=== PATIENT | male | born 1945 | race Caucasian/White ===

== ENCOUNTER 2019-08-13 11:42 | Emergency (ER) | payer OTHER, MEDICARE, SELFPAY ==
--- NOTE | ~2019-08-13 | XR_ITS ---
[XR ribs LT 2V w CXR 2V ] INDICATION: Left rib pain. Cough. TECHNIQUE: Frontal projection of the upper left ribs, frontal projection of the lower left ribs, obli que projection of all the left ribs, frontal inspiratory chest x-ray for interpretation. FINDINGS: There are no displaced rib fractures identified. There are no soft tissue abnormality see n. There is a right lower lobe mass measuring 3.4 cm. IMPRESSION: 1: 3.4 cm right lower lobe mass. Follow-up CT chest recommended. 2: No acute displaced rib fractures. Reviewed, dictated and finalized at location [facility]. [employer]
--- NOTE | 2019-08-13 12:42 | ED.BACK ---
HPI - Back Pain/Injury General Chief Complaint: Back Pain/Injury Stated Complaint: cough/left sided back pain Time Seen by Provider: 08/13/19 12:38 Source: patient Mode of arrival: ambulatory Limitations: no limitations History of Present Illness HPI Narrative: A 74 y/o male pt presents to the ED, with c/o pain to his lt posterior rib cage. Pt states he was recently Dx with a sinus infection by his PCP x 1 month ago, that he was prescribed Zithromax for and his Sx began to subside, however, his Sx returned last Sunday (5 days ago). He states that he returned to his PCP and was prescribed Augmentin and he notes his Sx are improving. Pt notes coughing hard last night and states he felt a pop and notes pain to his lt posterior rib cage and SOB immediately following. He states his pain is aggravated when taking a deep breath, and notes his pain is alleviated when coughing by applying direct pressure to the affected area. He notes taking cough medicine, and Oxycodone at 7AM and again at 9AM, that he had left over from a previous operation, with little relief. He adds that he took half of a Hydrocodone x 7.5mg at 11AM and he felt some relief. Pt states he has a CXR on Sunday (2 days ago) and results showed a 3mm spot, but he is scheduled for a follow up CT scan to determine what it is. He denies any PMHx of COPD. Pt notes an allergy to Mirtazapine. MD elicited complaint: back pain Pertinent past history: other (cough) Onset (ago): hour(s) (last night) Timing: constant Location: left upper back (posterior rib cage) Exacerbating factors: movement, deep breaths and coughing/sneezing Relieving factors: other (applying direct pressure to the area when coughing) Context: other (coughing) Associated symptoms: other (SOB) Treatments prior to arrival: prescription analgesics (Hydrocodone, Oxycodone) and other (OTC cough medicine) Related Data Home Medications Medication Instructions Recorded Confirmed albuterol sulfate 0.63 mg INHALATION Q6H 08/13/19 08/13/19 albuterol sulfate 1 inh INHALATION QID 08/13/19 08/13/19 alprazolam 0.5 mg PO BID PRN 08/13/19 08/13/19 aspirin [Adult Low Dose Aspirin] 08/13/19 azithromycin 08/13/19 baclofen 20 mg 08/13/19 benzonatate 200 mg 08/13/19 benzoyl peroxide TOPICAL 08/13/19 buspirone mg TID 08/13/19 carbidopa-levodopa tablet 08/13/19 cholecalciferol (vitamin D3) unit PO 08/13/19 cyclobenzaprine mg 08/13/19 diclofenac sodium TOPICAL 08/13/19 docusate sodium PO 08/13/19 dorzolamide (PF) 08/13/19 finasteride 08/13/19 fluticasone propionate INTRANASAL 08/13/19 furosemide 08/13/19 gabapentin 08/13/19 hydrocodone-acetaminophen 1 tablet PO Q12H PRN 08/13/19 08/13/19 latanoprost 08/13/19 leflunomide mg 08/13/19 lisinopril 08/13/19 loratadine mg 08/13/19 metoprolol succinate 50 mg PO DAILY 08/13/19 08/13/19 omeprazole 08/13/19 ondansetron HCl 08/13/19 polyethylene glycol 3350 17 g PO DAILY 08/13/19 08/13/19 polyvinyl alcohol [Artificial 08/13/19 Tears (polyvin alc)] potassium citrate PO 08/13/19 simvastatin mg 08/13/19 tamsulosin mg PO 08/13/19 Allergies Allergy/AdvReac Type Severity Reaction Status Date / Time No Known Allergies Allergy Unknown Verified 08/13/19 13:03 Review of Systems Review of Systems: All systems reviewed & are unremarkable except as noted in HPI and below Respiratory: Respiratory: Reports cough, Reports pain on inspiration, Reports pain with cough and Reports dyspnea Musculoskeletal: Musculoskeletal: Reports back pain (lt posterior rib cage) [facility], [facility] Past Medical History Medical History (Updated 08/13/19 @ 15:15 by Chrissy Pantoja [employer]) Arthritis Back pain CAD (coronary artery disease) History of angina History of gastroesophageal reflux (GERD) Hypercholesteremia Hypertension Kidney stones Parkinsons disease Surgical History Surgical History (Updated 08/13/19 @ 15:15 by Chrissy Pantoja [employer]) History of angioplasty History of repair o
[2019-08-13 12:45] VITALS: BP 137/72; PULSE 96; RESP 16; TEMP 36.7; O2SAT 96
[2019-08-13] MEDS: ALBUTEROL SULFATE NEB 2.5 MG/0.5 ML INH 5 MG INHALATION (13:38)
[2019-08-13 13:40] VITALS: PULSE 76; RESP 20
[2019-08-13 13:46] VITALS: PULSE 71; RESP 22
[2019-08-13] MEDS: predniSONE 20 MG TABLET PO (14:40)
[2019-08-13 14:45] VITALS: BP 116/61; PULSE 62; RESP 16; O2SAT 97
== END 2019-08-13 14:45 | disposition home or self-care (01) ==
PROVIDERS: Emergency Provider Emergency Medicine
DX: M19.90 Unspecified osteoarthritis, unspecified site (principal); I25.10 Atherosclerotic heart disease of native coronary artery without angina pectoris; K21.9 Gastro-esophageal reflux disease without esophagitis; E78.00 Pure hypercholesterolemia, unspecified; I10 Essential (primary) hypertension; Z87.442 Personal history of urinary calculi; G20 Parkinson's disease; Z98.61 Coronary angioplasty status; J44.9 Chronic obstructive pulmonary disease, unspecified; F17.290 Nicotine dependence, other tobacco product, uncomplicated
CPT/HCPCS: 71045; 71101; 94640; 99283; J7512